=== PATIENT | female | born 2005 | race Two or more races ===

== ENCOUNTER 2024-02-13 04:27 | Inpatient (IN) | payer OTHER ==
[~2024-02-13] VITALS: Ht 152.4 cm; Wt 69.9 kg
[2024-02-13] VITALS (11 sets, daily range): BP systolic 108–136; BP diastolic 70–86
[2024-02-13] MEDS ORDERED: RINGERS SOLUTION,LACTATED 1,000 ML IV ONE (05:15)
[2024-02-13] MEDS ORDERED: ZOFRAN8 MG PO (05:17)
[2024-02-13 05:52] LABS: PH,URINE 6.5 (5.0-8.0); URINE APPEARANCE Cloudy; URINE BILIRRUBIN Negative (NEGATIVE); URINE BLOOD Negative; URINE COLOR Yellow; URINE GLUCOSE Negative (NEGATIVE); URINE KETONE Trace (NEGATIVE); URINE LEUKOCYTE Small; URINE NITRATE Negative; URINE PROTEIN Trace (NEGATIVE)
[2024-02-13 06:06] LABS: URINE BACTERIA 1673.2 uL (0.0-1933); URINE EPITHELIAL CELLS 89.9 uL (0.0-38.8); URINE RBC 63.6 uL (0.0-20.8); URINE WBC 378.5 uL (0.0-23.2)
[2024-02-13 06:15] LABS: HEMOGLOBIN 10.7 g/dL (12.0-15.00); MEAN CELL VOLUME 85.8 fL (80.00-100.00); MEAN CORPUSCULAR HEMOGLOBIN 28.8 pg (27.00-32.0); MEAN CORPUSCULAR HGB CONC 33.6 g/dl (32.0-36.0); PLATELET COUNT 201 K/uL (150-450); RED BLOOD COUNT 3.72 M/uL (4.00-6.00); RED CELL DISTRIBUTION WIDTH 13.8 % (11.5-14.5)
[2024-02-13 06:38] LABS: INR 1.03; PARTIAL THROMBOPLASTIN TIME 26.9 SECONDS (22.0-34.0); PROTHROMBIN TIME 11.2 SECONDS (9.0-11.5)
[2024-02-13 06:42] LABS: BILIRUBIN TOTAL 0.21 mg/dL (0.3-1.2); CALCIUM 8.9 mg/dL (8.5-10.1); CREATININE SERUM 0.56 mg/dL (0.55-1.02); GFR 139.46; GLOBULINA 3.9 G/DL (2.4-3.5); POTASSIUM 3.86 mEq/L (3.5-5.1); TOTAL PROTEIN 6.9 gm/dL (6.4-8.2)
[2024-02-13 06:58] LABS: URINE MUCUS MODERATE; URINE YEAST FEW /hpf
[2024-02-13] MEDS ORDERED: OXYTOCIN 500 ML IV ONE (08:00)
[2024-02-13] MEDS ORDERED: PROMETHAZINE HCL 25 MG/ML AMPUL IV ONE (13:00)
[2024-02-13] MEDS ORDERED: MEPERIDINE HCL 25 MG/ML AMPUL IV ONE (13:00)
[2024-02-13] MEDS ORDERED: PROMETHAZINE HCL 25 MG/ML AMPUL ONE (13:02)
[2024-02-13] MEDS ORDERED: AMPICILLIN SODIUM 2,000 MG VIAL IV ONE (15:45)
[2024-02-13] MEDS ORDERED: FF) RHO(D) IMMUNE GLOBULIN (POM) IM ONE (16:00)
[2024-02-13] MEDS ORDERED: AMPICILLIN SODIUM 1,000 MG VIAL IV SCH (17:00)
[2024-02-13] MEDS ORDERED: LIDOCAINE HCL 1% 10ML VIAL ONE ×2 (17:49→18:00)
[2024-02-13] MEDS ORDERED: CHLORHEXIDINE GLUCONATE 120 ML BOTTLE TOP ONE (17:49)
[2024-02-13] MEDS ORDERED: OXYTOCIN 20 UNITS/1000ML RL PIGGYBAG IV ONE (17:49)
[2024-02-13] MEDS ORDERED: ERYTHROMYCIN BASE OPHT 1GM EACH TUBE OP ONE ×2 (17:49→19:45)
[2024-02-13] MEDS ORDERED: CHLORHEXIDINE GLUCONATE 120 ML BOTTLE TP SCH (19:45)
[2024-02-13] MEDS ORDERED: OXYTOCIN 1,000 ML IV SCH (19:45)
[2024-02-13] MEDS ORDERED: LIDOCAINE HCL 1% 10ML VIAL PERCUT ONE ×2 (19:45)
[2024-02-14] VITALS: BP 130/83
[2024-02-14] MEDS ORDERED: ACETAMINOPHEN 500 MG GEL..CAP PO SCH
[2024-02-14 06:54] LABS: HEMATOCRIT 26.9 % (36.0-45.00); HEMOGLOBIN 9.4 g/dL (12.0-15.00); MEAN CELL VOLUME 83.4 fL (80.00-100.00); MEAN CORPUSCULAR HEMOGLOBIN 29.1 pg (27.00-32.0); MEAN CORPUSCULAR HGB CONC 34.9 g/dl (32.0-36.0); PLATELET COUNT 172 K/uL (150-450); RED BLOOD COUNT 3.23 M/uL (4.00-6.00)
[2024-02-14 08:00] VITALS: BP 108/72
[2024-02-14] MEDS ORDERED: IRON/V.C/V.B12/FOLIC A/VIT. E 1 CAPL CAPLET PO SCH (17:32)
[2024-02-14 19:32] VITALS: BP 123/81
[2024-02-15] VITALS: BP 111/72
[2024-02-15 08:00] VITALS: BP 135/71
== END 2024-02-15 14:10 | disposition home or self-care (01) | DRG 807 ==
LOC: LDR 04:27 → OB/GYN 04:27
PROVIDERS: ADMIT Obstetrics & Gynecology; ATTEND Obstetrics & Gynecology
PROC: 10E0XZZ Delivery of Products of Conception, External Approach (ICD-10-PCS; principal; 2024-02-13)
PROC: 0W8NXZZ Division of Female Perineum, External Approach (ICD-10-PCS; 2024-02-13)
PROC: 4A1HXCZ Monitoring of Products of Conception, Cardiac Rate, External Approach (ICD-10-PCS; 2024-02-13)
DX: O80 Encounter for full-term uncomplicated delivery (principal); Z37.0 Single live birth; Z3A.39 39 weeks gestation of pregnancy; Z20.822 Contact with and (suspected) exposure to COVID-19